=== PATIENT | female | born 1950 | race Caucasian/White ===

== ENCOUNTER 2016-08-14 14:46 | Outpatient (CLI) | payer MEDICARE, OTHER | END 2016-08-14 14:47 | disposition home or self-care (01) | DX: Z12.31 Encounter for screening mammogram for malignant neoplasm of breast (principal) ==

== ENCOUNTER 2017-02-03 07:28 | Day surgery (SDC) | payer MEDICARE, OTHER ==
[2017-02-03] MEDS ORDERED: LACTATED RINGERS 1,000 ML IV ONE ×2 (07:33→10:50)
[2017-02-03] MEDS ORDERED: ceFAZolin 3 GM/20 ML SYRINGE IVP ONE (08:00)
[2017-02-03] MEDS ORDERED: BUPIVACAINE 0.5% PF 30 ML VIAL INFIL ONE (10:08)
[2017-02-03] MEDS ORDERED: MIDAZOLAM 2 MG/2 ML VIAL IVP ONE (10:40)
[2017-02-03] MEDS ORDERED: fentaNYL 100 MCG/2 ML VIAL IVP ONE (10:40)
[2017-02-03] MEDS ORDERED: DEXAMETHASONE 4 MG/ML VIAL IVP ONE (10:40)
[2017-02-03] MEDS ORDERED: ROCURONIUM 50 MG/5 ML VIAL IVP ONE (10:40)
[2017-02-03] MEDS ORDERED: SUCCINYLCHOLINE 200 MG/10 ML VIAL IVP ONE (10:40)
[2017-02-03] MEDS ORDERED: PROPOFOL 200 MG/20 ML VIAL IVP ONE (10:40)
[2017-02-03] MEDS ORDERED: LIDOCAINE-MPF 2% 5 ML VIAL IM ONE (10:40)
[2017-02-03] MEDS ORDERED: ONDANSETRON 4 MG/2 ML VIAL IVP ONE (10:40)
--- NOTE | 2017-02-03 10:57 | OPERATIVE REPORT ---
Operative Report - General Procedure Date: 02/03/17 Planned Procedure: Incisional herniorrhaphy with mesh Pre-Op Diagnosis: Incisional hernia Procedure Performed: Incisional herniorrhaphy with mesh (Ventrallex ST hernia patch, reference # [id number], lot #[id number], use by 2017-11-05) Post Op Diagnosis: Same. - Procedure Note Primary Surgeon: Rober Pederson MD Anesthesia Provider: Roger Romero Anesthesia Technique: General ET tube, Local (30 mL of half percent Marcaine) IV Fluids (mL): 1,100 Estimated Blood Loss (mL): 5 Complications: None. - Other Other Information/Narrative: OPERATIVE DESCRIPTION/REPORT: After verbal and written informed consent was obtained detailing the risks of infection, bleeding requiring transfusion with its risks, nerve injury, and , and after I met with the patient confirming the surgery and the site of the surgery, the patient was brought to the operative suite and placed supine on the operating table. Great care was taken to avoid pressure points to prevent pressure necrosis or nerve injury. Monitoring devices were applied along with TEDs and pneumatic compressive stockings (to prevent DVT). The patient received preoperative antibiotics for surgical prophylaxis. Roger Romero sedated and anethetized the patient for the entire procedure. The patient was prepped and draped in the usual sterile manner. With the patient draped my initials were clearly visible. A "time in" then confirmed that the paitient was identified with 3 identifiers (name, birthdate and medical record number), the history and physical was in the chart, the signed consent confirming the procedure was in the chart, the patient was in the correct position, the aforementioned prophylactic measures were in place or given, we had the correct personel and equipment to complete the procedure and that anesthesia, surgery and nursing were given an opportunuty to express any concerns. With the agreement of everyone in the room, we proceeded with the operation. A vertical midline incision was made overlying the mass and dissection was carried down to the hernia sac using a combination of Metzenbaum scissors, scalpel, and Bovie electrocautery. The sac was cleared of overlying adherent tissue, and the fascial defect was delineated. The fascia was cleared of any adherent tissue for a distance 1.5 cm from the defect. The sac was resected using a combination of Metzenbaum scissors and Bovie electrocautery. The defect was closed using a piece of Bard Ventralex ST mesh (see above) sewing it in place using interrupted 2-0 PDS using the supplied straps. The fascial defect was also closed using a 2-0 PDS in a figure-8 suture. The fascia and the skin were then injected using 1/2% marcaine for post operative pain control. The subcutaneous tissues were copiously irrigated, and then closed using an interrupted 2-0 Vicryl. Meticulous hemostasis was obtained using Bovie electrocautery. The skin incision was approximated with a running 4-0 Monocryl. At this point a time out was performed that confirmed that all the counts were correct, the procedure that was performed, the blood loss, the IV fluids administered, and the patient s condition. Having tolerated the procedure well, the patient was subsequently extubated and taken to recovery room in good and stable condition.
[2017-02-03 12:07] VITALS: BP 109/97
== END 2017-02-03 07:29 | disposition home or self-care (01) ==
LOC: SDS 07:28
PROVIDERS: ATTEND Surgery
PROC: 0WUF0JZ Supplement Abdominal Wall with Synthetic Substitute, Open Approach (ICD-10-PCS; principal; 2017-02-03 09:00)
DX: K43.2 Incisional hernia without obstruction or gangrene (principal); I10 Essential (primary) hypertension; E78.5 Hyperlipidemia, unspecified; E66.01 Morbid (severe) obesity due to excess calories; Z68.37 Body mass index [BMI] 37.0-37.9, adult; F32.9 Major depressive disorder, single episode, unspecified
CPT/HCPCS: 49560; 49568; C1781; J7120

== ENCOUNTER 2017-04-18 04:15 | Outpatient (CLI) | payer MEDICARE, OTHER | END 2017-04-18 04:16 | disposition critical access hospital (66) | LOC: EMS 04:15 | PROVIDERS: ATTEND Surgery | DX: R11.2 Nausea with vomiting, unspecified (principal) | CPT/HCPCS: A0425; A0427; 96361; 96365; 96375; 96376; 99284 ==

== ENCOUNTER 2017-04-18 04:53 | Emergency (ER) | payer MEDICARE, OTHER ==
[2017-04-18] MEDS ORDERED: SODIUM CHLORIDE 0.9% 1,000 ML IV ONE (04:57)
[2017-04-18] MEDS ORDERED: ONDANSETRON 4 MG/2 ML VIAL IVP STA ×2 (04:57→06:41)
[2017-04-18] MEDS ORDERED: ONDANSETRON 4 MG/2 ML VIAL ONE ×2 (05:26→06:48)
[2017-04-18 05:33] LABS: BASOPHILS # (AUTO) 0.1 10^3/uL (0.0-0.1); BASOPHILS % (AUTO) 0.6 %; HGB - HEMOGLOBIN 12.3 g/dL (12.0-16.0); LYMPHOCYTES # (AUTO) 0.9 10^3/uL (1.5-3.5); LYMPHOCYTES % (AUTO) 9.5 %; MEAN CORPUSCULAR HEMOGLOBIN 30.1 pg (27.0-31.0); MEAN CORPUSCULAR HGB CONC 34.3 g/dL (32.0-36.0); MEAN CORPUSCULAR VOLUME 87.9 fL (81.0-99.0); MEAN PLATELET VOLUME 9.6 fL (7.9-10.8); MONOCYTES # (AUTO) 0.3 10^3/uL (0.0-1.0); MONOCYTES % (AUTO) 3.8 %; NEUTROPHILS # (AUTO) 7.9 10^3/uL (1.5-6.6); NEUTROPHILS % (AUTO) 86.1 %; RED BLOOD COUNT 4.09 10^6/uL (4.20-5.40); RED CELL DISTRIBUTION WIDTH 13.2 % (12.0-15.0); UNCORRECTED WHITE BLOOD COUNT 9.1 x10^3/uL; WHITE BLOOD COUNT 9.1 x10^3/uL (4.8-10.8)
--- NOTE | 2017-04-18 05:49 | ED Physician Documentation ---
PD HPI NVD - Stated complaint Stated Complaint: N/V - Chief complaint Chief Complaint: Abd Pain - History obtained from History obtained from: Patient - History of Present Illness Timing - onset: Yesterday Timing - details: Gradual onset, Still present Associated symptoms: Abdominal pain Contributing factors: Sick contact Similar symptoms before: No diagnosis Recently seen: Not recently seen - Additonal information Additional information: Patient is a 66 year old female who is presenting to the emergency department for abdominal pain and vomiting. Patient states that is started yesterday and she has not been able to keep anything down. patient states that someone at her work last week had similar symptoms. Review of Systems Constitutional: reports: Chills, Myalgias. denies: Fever Eyes: reports: Reviewed and negative Ears: denies: Ear pain, Drainage/discharge Nose: denies: Congestion Throat: denies: Sore throat Cardiac: denies: Chest pain / pressure Respiratory: denies: Dyspnea, Cough, Wheezing GI: reports: Abdominal Pain, Nausea, Vomiting. denies: Diarrhea : denies: Dysuria, Frequency, Hesitancy Skin: denies: Rash, Lesions Musculoskeletal: denies: Neck pain Neurologic: reports: Generalized weakness. denies: Focal weakness, Numbness Immunocompromised: denies: Immunocompromised PD PAST MEDICAL HISTORY - Past Medical History Cardiovascular: Hypertension, High cholesterol GI: GERD : Incontinence Psych: Anxiety - Past Surgical History Past Surgical History: Yes Ortho: Hip replacement - Present Medications Home Medications: Ambulatory Orders Medication Instructions Recorded Confirmed Hydrochlorothiazide 25 mg PO DAILY 02/27/16 04/18/17 Levothyroxine [Synthroid] 150 mcg PO QDAC 02/27/16 04/18/17 Lisinopril 20 mg PO DAILY 02/27/16 04/18/17 Atorvastatin Calcium 20 mg PO DAILY 02/03/17 04/18/17 Venlafaxine HCl [Venlafaxine HCl 150 mg PO DAILY 02/03/17 04/18/17 ER] Ondansetron Odt [Zofran] 4 mg TL Q6H PRN #20 tablet 04/18/17 - Allergies Allergies/Adverse Reactions: Allergies Allergy/AdvReac Type Severity Reaction Status Date / Time No Known Drug Allergies Allergy Verified 04/18/17 05:04 - Social History Does the pt smoke?: No Smoking Status: Never smoker Does the pt drink ETOH?: No Does the pt have substance abuse?: No - Immunizations Immunizations are current?: Yes - POLST Patient has POLST: No PD ED PE NORMAL - Vitals Vital signs reviewed: Yes - General General: Alert and oriented X 3, Well developed/nourished - HEENT HEENT: Atraumatic, PERRL, Pharynx benign - Neck Neck: Supple, no meningeal sign - Cardiac Cardiac: RRR, No murmur - Respiratory Respiratory: No respiratory distress, Clear bilaterally - Abdomen Abdomen: Soft - Derm Derm: Normal color, Warm and dry, No rash - Extremities Extremities: No deformity - Neuro Neuro: Alert and oriented X 3, No motor deficit, No sensory deficit Eye Opening: Spontaneous Motor: Obeys Commands Verbal: Oriented GCS Score: 15 - Psych Psych: Normal mood PD ED PE EXPANDED - General General: Alert, Other (nauseated, uncomfortable) - HEENT HEENT: Dry mucous membranes - Abdomen Abdomen: Hyperactive BS, Tender to palpation, Generalized/diffuse Results - Vitals Vitals: Vital Signs - 24 hr 04/18/17 04:56 Temperature 37.4 C Heart Rate 91 Respiratory 18 Rate Blood Pressure 140/76 H O2 Saturation 99 Oxygen O2 Source Room air - Labs Labs: Laboratory Tests 04/18/17 04/18/17 04/18/17 05:25 05:25 05:29 WBC 9.1 RBC 4.09 L Hgb 12.3 Hct 36.0 L MCV 87.9 MCH 30.1 MCHC 34.3 RDW 13.2 Plt Count 227 MPV 9.6 Neut # 7.9 H Lymph # 0.9 L Gage # 0.3 Eos # 0.0 Baso # 0.1 Absolute Nucleated RBC 0.00 Nucleated RBC % 0.0 Sodium 139 Potassium 2.8 L Chloride 103 Carbon Dioxide 20 L Anion Gap 16.0 H BUN 18 Creatinine 1.0 Estimated GFR (MDRD) 55 L Glucose 181 H Calcium 9.6 Phosphorus 1.0 L* Magnesium 1.8 Total Bilirubin 0.8 AST 32 ALT 14 Alkaline Phosphatase 50 Total Protein 7.2 Albumin 4.3 Globulin 2.9 Albumin/Globulin Ratio 1.5 Lipase 13 L Influenza A (Rapid) Negative Influenza B (Rapid) Negative Influenza Types A,B Ag - PD MEDICAL DECISION MAKING - ED course Complexity details: reviewed old records, reviewed results, re-evaluated patient , considered differential, d/w patient ED course: Patient was seen and examined at bedside. IV access was gained and labs were drawn. Patient was treated with IV fluids and zofran. When patient's labs came back she had multiple electrolyte abnormalities. Electrolytes were replaced. Patient was able to tolerate PO without difficulty. patient required no further work up and was stable for discharge with outpatient follow up. Departure - Departure Disposition: 01 Home, Self Care Clinical Impression: Gastroenteritis Condition: Good Instructions: ED Gastroenteritis Viral Follow-Up: Peg Hurst PA [Primary Care Provider] - Prescriptions: Ondansetron Odt [Zofran] 4 mg TL Q6H PRN #20 tablet PRN Reason: Nausea / Vomiting Comments: Your symptoms today are being caused by gastroenteritis. It is most likely viral in nature and should be self limited, meaning it will get better on its own. Your electrolytes are abnormal due to your vomiting and will need to be replaced. The easiest way to do it is with gatorade, pedialyte or other electrolyte solution. You should take the zofran for nausea and stay well hydrated. You should follow up with your doctor thursday if your symptoms are persistent. you may return to the emergency department at any time for new, worsening or uncontrollable symptoms.
[2017-04-18 06:08] LABS: ALBUMIN/GLOBULIN RATIO 1.5 (1.0-2.2); BILIRUBIN,TOTAL 0.8 mg/dL (0.2-1.0); CALCIUM 9.6 mg/dL (8.5-10.3); MAGNESIUM 1.8 mg/dL (1.7-2.8); POTASSIUM 2.8 mmol/L (3.5-5.0); TOTAL PROTEIN 7.2 g/dL (6.7-8.2)
[2017-04-18] MEDS ORDERED: NEUTRA-PHOS 250 MG TABLET PO STA (06:11)
[2017-04-18] MEDS ORDERED: POTASSIUM CHLORIDE 20 MEQ TABLET PO STA (06:11)
[2017-04-18] MEDS ORDERED: POTASSIUM CHLORIDE 20 MEQ TABLET PO ONE (06:21)
[2017-04-18] MEDS ORDERED: DICYCLOMINE 10 MG CAPSULE PO STA (06:41)
[2017-04-18] MEDS ORDERED: DICYCLOMINE 10 MG CAPSULE PO ONE (06:48)
[2017-04-18] MEDS ORDERED: PROMETHAZINE INJ 25 MG in SODIUM CHLORIDE 0.9% 50 ML IV STA (07:31)
[2017-04-18] MEDS ORDERED: PROMETHAZINE 25 MG/1 ML VIAL ONE (07:39)
[2017-04-18 09:10] VITALS: BP 132/74
== END 2017-04-18 09:10 | disposition home or self-care (01) ==
LOC: EDUNIT# → ED 04:53 → SUPCPDRO 04:53 → ED 09:10
DX: K52.9 Noninfective gastroenteritis and colitis, unspecified (principal); I10 Essential (primary) hypertension; E78.00 Pure hypercholesterolemia, unspecified; K21.9 Gastro-esophageal reflux disease without esophagitis
CPT/HCPCS: 36415; 80053; 83690; 83735; 84100; 85025; 87275; 87276; 96361; 96365; 96375; 96376; 99283; 99284; A9270; J7040

== ENCOUNTER 2018-01-23 12:45 | Outpatient (CLI) | payer MEDICARE, OTHER | END 2018-01-23 12:46 | disposition critical access hospital (66) | LOC: EMS 12:45 | PROVIDERS: ATTEND Surgery | DX: R11.10 Vomiting, unspecified (principal); R10.9 Unspecified abdominal pain | CPT/HCPCS: A0425; A0427 ==

== ENCOUNTER 2018-01-23 13:22 | Emergency (ER) | payer MEDICARE, OTHER ==
[2018-01-23] MEDS ORDERED: SODIUM CHLORIDE 0.9% 1,000 ML IV ONE ×2 (13:43)
[2018-01-23] MEDS ORDERED: ONDANSETRON 4 MG/2 ML VIAL IVP STA (13:50)
[2018-01-23] MEDS ORDERED: MORPHINE 2 MG/ML CARPUJECT IVP STA (13:50)
--- NOTE | 2018-01-23 13:54 | ED Physician Documentation ---
PD HPI ABD PAIN - Stated complaint Stated Complaint: N/V - Chief complaint Chief Complaint: Abd Pain - History obtained from History obtained from: Patient, Family - History of Present Illness Timing - onset: How many days ago (3) Timing - duration: Days (3) Timing - details: Gradual onset, Intermittant Pain level max: 4 Pain level now: 3 Quality: Cramping, Pain Location: All over / everywhere Radiation: No: Chest, , Lower back, Left flank, Left shoulder, Right flank, Right shoulder, Upper back Improved by: Vomiting, BM (diarrhea for the past 3 days) Worsened by: Eating Associated symptoms: Nausea, Vomiting, Diarrhea. No: Fever, Hematemesis, Constipation, Melena, Hematochezia, Dysuria, Hematuria Similar symptoms before: Other (states has had this a few times in the past. states increased stress lately.) Recently seen: Not recently seen Review of Systems Constitutional: denies: Fever, Chills Nose: denies: Rhinorrhea / runny nose, Congestion Throat: denies: Sore throat Cardiac: denies: Chest pain / pressure Respiratory: denies: Cough GI: denies: Hematemesis, Bloody / black stool Skin: denies: Rash Musculoskeletal: denies: Neck pain, Back pain Neurologic: denies: Headache PD PAST MEDICAL HISTORY - Past Medical History Past Medical History: Yes Cardiovascular: Hypertension, High cholesterol Respiratory: None Endocrine/Autoimmune: None GI: GERD MECHANICAL FITTER: None : Incontinence HEENT: None Psych: Anxiety Musculoskeletal: None Derm: None - Past Surgical History Past Surgical History: Yes Ortho: Hip replacement - Present Medications Home Medications: Ambulatory Orders Medication Instructions Recorded Confirmed Hydrochlorothiazide 25 mg PO DAILY 02/27/16 04/18/17 Levothyroxine [Synthroid] 150 mcg PO QDAC 02/27/16 04/18/17 Lisinopril 20 mg PO DAILY 02/27/16 04/18/17 Atorvastatin Calcium 20 mg PO DAILY 02/03/17 04/18/17 Venlafaxine HCl [Venlafaxine HCl 150 mg PO DAILY 02/03/17 04/18/17 ER] Dicyclomine [Bentyl] 10 mg PO QID #20 capsule 04/18/17 Ondansetron Odt [Zofran] 4 mg TL Q6H PRN #20 tablet 04/18/17 Lorazepam [Ativan] 1 mg PO Q8HR PRN #7 tablet 01/23/18 Ondansetron Odt [Zofran] 4 mg TL Q6H PRN #10 tablet 01/23/18 - Allergies Allergies/Adverse Reactions: Allergies Allergy/AdvReac Type Severity Reaction Status Date / Time No Known Drug Allergies Allergy Verified 01/23/18 13:34 - Social History Does the pt smoke?: No Smoking Status: Never smoker Does the pt drink ETOH?: No Does the pt have substance abuse?: No - Immunizations Immunizations are current?: Yes - POLST Patient has POLST: No PD ED PE NORMAL - Vitals Vital signs reviewed: Yes - General General: Alert and oriented X 3, No acute distress - HEENT HEENT: Moist mucous membranes - Neck Neck: Supple, no meningeal sign - Cardiac Cardiac: RRR, Strong equal pulses - Respiratory Respiratory: No respiratory distress, Clear bilaterally - Abdomen Abdomen: Soft, Non tender, Non distended - Derm Derm: Warm and dry - Neuro Neuro: Alert and oriented X 3 - Psych Psych: Normal mood, Normal affect Results - Vitals Vitals: Vital Signs - 24 hr 01/23/18 01/23/18 01/23/18 13:30 14:04 14:32 Temperature 36.6 C Heart Rate 75 90 73 Respiratory 18 22 14 Rate Blood Pressure 118/70 128/72 133/75 H O2 Saturation 98 100 95 01/23/18 15:49 Temperature Heart Rate 70 Respiratory 12 Rate Blood Pressure 131/64 H O2 Saturation 100 Oxygen O2 Source Room air - Labs Labs: Laboratory Tests 01/23/18 01/23/18 14:07 14:07 WBC 10.3 RBC 4.19 L Hgb 12.7 Hct 36.7 L MCV 87.5 MCH 30.4 MCHC 34.7 RDW 13.5 Plt Count 252 MPV 8.3 Neut # (Auto) 9.1 H Lymph # (Auto) 0.8 L Graham # (Auto) 0.4 Eos # (Auto) 0.0 Baso # (Auto) 0.1 Absolute Nucleated RBC 0.01 Nucleated RBC % 0.1 Sodium 141 Potassium 3.2 L Chloride 107 Carbon Dioxide 19 L Anion Gap 15.0 H BUN 13 Creatinine 0.7 Estimated GFR (MDRD) 83 L Glucose 189 H Calcium 8.9 Total Bilirubin 0.7 AST 17 ALT 11 Alkaline Phosphatase 49 Total Protein 7.4 Albumin 3.9 Globulin 3.5 Albumin/Globulin Ratio 1.1 Lipase 27 PD MEDICAL DECISION MAKING - ED course Complexity details: reviewed results, re-evaluated patient, considered differential, d/w patient ED course: Patient is a 67-year-old female who presents to the emergency department vomiting today. Appears to be likely related to stress and anxiety given her 's recent cancer diagnosis. She feels better after Ativan. Tolerating p.o. without difficulty. IV fluids given. Abdomen is soft, nontender nondistended on serial exam. She is comfortable going home at this time. Patie nt counseled regarding signs and symptoms for which I believe and urgent re- evaluation would be necessary. Patient with good understanding of and agreement to plan and is comfortable going home at this time This document was made in part using voice recognition software. While efforts are made to proofread this document, sound alike and grammatical errors may occur. - Sepsis Event Vital Signs: Vital Signs - 24 hr 01/23/18 01/23/18 01/23/18 13:30 14:04 14:32 Temperature 36.6 C Heart Rate 75 90 73 Respiratory 18 22 14 Rate Blood Pressure 118/70 128/72 133/75 H O2 Saturation 98 100 95 01/23/18 15:49 Temperature Heart Rate 70 Respiratory 12 Rate Blood Pressure 131/64 H O2 Saturation 100 Oxygen O2 Source Room air Departure - Departure Disposition: 01 Home, Self Care Clinical Impression: Anxiety Vomiting Qualifiers: Vomiting type: unspecified Vomiting Intractability: non-intractable Nausea presence: with nausea Qualified Code(s): R11.2 - Nausea with vomiting, unspecified Condition: Good Instructions: ED Nausea Vomiting Follow-Up: Peg Hurst PA [Primary Care Provider] - Within 1 week Prescriptions: Lorazepam [Ativan] 1 mg PO Q8HR PRN #7 tablet PRN Reason: As Needed Per Provider Orders Ondansetron Odt [Zofran] 4 mg TL Q6H PRN #10 tablet PRN Reason: Nausea / Vomiting Comments: Talk to your doctor about further medications for your anxiety. Return if you worsen. Do not drive or operate heavy machinery while taking ativan. Discharge Date/Time: 01/23/18 15:56
[2018-01-23] MEDS ORDERED: LORazepam 2 MG/ML VIAL IVP STA (14:09)
[2018-01-23 14:13] LABS: BASOPHILS # (AUTO) 0.1 10^3/uL (0.0-0.1); BASOPHILS % (AUTO) 0.7 %; EOSINOPHILS % (AUTO) 0.1 %; HGB - HEMOGLOBIN 12.7 g/dL (12.0-16.0); LYMPHOCYTES # (AUTO) 0.8 10^3/uL (1.5-3.5); LYMPHOCYTES % (AUTO) 7.3 %; MEAN CORPUSCULAR HEMOGLOBIN 30.4 pg (27.0-31.0); MEAN CORPUSCULAR HGB CONC 34.7 g/dL (32.0-36.0); MEAN CORPUSCULAR VOLUME 87.5 fL (81.0-99.0); MEAN PLATELET VOLUME 8.3 fL (7.9-10.8); MONOCYTES # (AUTO) 0.4 10^3/uL (0.0-1.0); MONOCYTES % (AUTO) 3.5 %; NEUTROPHILS # (AUTO) 9.1 10^3/uL (1.5-6.6); NEUTROPHILS % (AUTO) 88.4 %; PLT - PLATELET COUNT 252 10^3/uL (130-450); RED BLOOD COUNT 4.19 10^6/uL (4.20-5.40); RED CELL DISTRIBUTION WIDTH 13.5 % (12.0-15.0); WHITE BLOOD COUNT 10.3 x10^3/uL (4.8-10.8)
[2018-01-23 14:25] LABS: ALBUMIN 3.9 g/dL (3.2-5.5); ALBUMIN/GLOBULIN RATIO 1.1 (1.0-2.2); BILIRUBIN,TOTAL 0.7 mg/dL (0.2-1.0); CALCIUM 8.9 mg/dL (8.5-10.3); CREATININE 0.7 mg/dL (0.4-1.0); TOTAL PROTEIN 7.4 g/dL (6.7-8.2)
[2018-01-23 15:50] VITALS: BP 131/64
== END 2018-01-23 15:56 | disposition home or self-care (01) ==
LOC: EDUNIT# → ED 13:22
DX: F41.9 Anxiety disorder, unspecified (principal); R11.2 Nausea with vomiting, unspecified; I10 Essential (primary) hypertension
CPT/HCPCS: 36415; 80053; 83690; 85025; 96361; 96374; 96375; 99283; J2060

== ENCOUNTER 2018-09-18 10:37 | Outpatient (CLI) | payer MEDICARE, OTHER ==
--- NOTE | 2018-09-20 01:33 | XRAY Report ---
Reason: CERVICALGIA Procedure Date: 09/18/2018 Accession Number: [id number] / [id number] Procedure: XR - Cervical Spine 2 View CPT Code: FULL RESULT: EXAM: CERVICAL SPINE RADIOGRAPHY EXAM DATE: 09/18/2018 10:51 AM. CLINICAL HISTORY: Cervicalgia. Ongoing neck pain. COMPARISONS: None. TECHNIQUE: 4 views. FINDINGS: Moderate to severe degenerative disk disease with disk height loss and osteophytes at C4 to C7. Moderate C3-C4 degenerative disk disease with osteophytes. Moderate to severe diffuse facet arthropathy in the upper and mid cervical spine with severe left C2-C3, C3-C4 and C4-C5 facet arthropathy noted. Mild to moderate C6-C7 and C7-T1 facet arthropathy. Minimal retrolisthesis at C4-C5 and C5-C6 most likely degenerative. Minimal C2-C3 anterolisthesis most likely degenerative. No evidence for acute fracture. No prevertebral soft tissue swelling. IMPRESSION: 1. No evidence for acute fracture. 2. Degenerative changes. See above. RADIA
--- NOTE | 2018-09-20 15:26 | CT Report ---
Reason: CERVICALGIA,CHRONIC SINUSITIS,UNSPECIFIED Procedure Date: 09/18/2018 Accession Number: [id number] / [id number] Procedure: CT - Sinuses CPT Code: FULL RESULT: EXAM: CT SINUS EXAM DATE: 09/18/2018 10:54 AM. HISTORY: Cervicalgia, chronic sinusitis, unspecified. COMPARISONS: None. TECHNIQUE: Routine multi-axial CT imaging performed through the sinuses. Iodinated IV contrast: None. Reconstructions: Multiplanar reformats. In accordance with CT protocol optimization, one or more of the following dose reduction techniques were utilized for this exam: automated exposure control, adjustment of mA and/or KV based on patient size, or use of iterative reconstructive technique. FINDINGS: RIGHT Frontal: Normal. Ethmoid: Normal. Maxillary: Normal. Sphenoid: Normal. Drainage Pathways: The frontal recess, ostiomeatal complex and sphenoethmoidal recess are patent and normal. LEFT Frontal: Normal. Ethmoid: Normal. Maxillary: Normal. Sphenoid: Normal. Drainage Pathways: The frontal recess, ostiomeatal complex and sphenoethmoidal recess are patent and normal. Nasal Cavity: Normal. No mass or significant anatomic abnormality evident. Osseous Structures: Unremarkable. Orbits: Unremarkable. Other: Absence of the left lateral incisor noted. IMPRESSION: Normal Sinus CT. No sinusitis. RADIA
== END 2018-09-18 10:38 | disposition home or self-care (01) ==
LOC: DI 10:37
PROVIDERS: ATTEND Physician Assistant
DX: J32.4 Chronic pansinusitis (principal); M50.31 Other cervical disc degeneration, high cervical region; M47.9 Spondylosis, unspecified; M43.12 Spondylolisthesis, cervical region
CPT/HCPCS: 70486; 72040

== ENCOUNTER 2018-10-15 16:10 | Outpatient (CLI) | payer MEDICARE, OTHER ==
--- NOTE | 2018-10-18 09:25 | Mammography Report ---
Reason: ENCOUNTER FOR SCREENING MAMMOGRAM FOR MALIGNANT NE Procedure Date: 10/15/2018 Accession Number: [id number] / [id number] Procedure: [facility]OLA - Screening Mammo w/Mauricio CPT Code: FULL RESULT: EXAM: Screening Mammo w/Mauricio DATE: 10/15/2018 4:48 PM CLINICAL HISTORY: Screening TECHNIQUE: (B) - Bilateral CC and MLO views were obtained. COMPARISON: 08/14/2016, 05/12/2014 PARENCHYMAL PATTERN: (A) - The breasts demonstrate scattered fibroglandular densities bilaterally. FINDINGS: There are no suspicious masses, calcifications, or areas of distortion. IMPRESSION: Negative examination. BI-RADS category 1. RECOMMENDATION: (ANNUAL) - Recommend routine annual screening mammography. BI-RADS CATEGORY: (1) - Negative. STANDARD QUALIFYING STATEMENTS: 1. This examination was not reviewed with the aid of Computer-Aided Detection (CAD). 2. A negative or benign imaging report should not preclude biopsy if clinically suspicious findings are present. 3. Dense breasts may obscure an underlying neoplasm. 4. This examination was reviewed with the aid of 3D breast imaging (tomosynthesis).
== END 2018-10-15 16:11 | disposition home or self-care (01) ==
LOC: DI 16:10
PROVIDERS: ATTEND Physician Assistant
DX: Z12.31 Encounter for screening mammogram for malignant neoplasm of breast (principal)
CPT/HCPCS: 77063; 77067

== ENCOUNTER 2018-11-22 14:13 | Outpatient (CLI) | payer MEDICARE, OTHER ==
--- NOTE | 2018-11-22 16:12 | XRAY Report ---
Reason: PAIN IN LEFT WRIST Procedure Date: 11/22/2018 Accession Number: [id number] / [id number] Procedure: XRS - Wrist 3 View LT CPT Code: FULL RESULT: EXAMS: LEFT HAND AND WRIST RADIOGRAPHY EXAM DATE: 11/22/2018 02:38 PM. CLINICAL HISTORY: Pain in left hand, M79.642. COMPARISON: WRIST 3 VIEW LT 11/22/2018 2:44 PM. TECHNIQUE: 3 views of the wrist and 3 views of the hand. FINDINGS: Bones: The fifth metacarpal appears intact. No fractures or bone lesions in the hand or wrist. Joints: There are at least moderate degenerative changes of the first carpometacarpal articulation. There is joint space narrowing of the interphalangeal joints, distal greater than proximal with osteophytosis. The scapholunate interval measures 3 mm as seen on the PA view of the wrist. Soft Tissues: Normal. No soft tissue swelling. 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 Osteoarthrosis pattern degenerative changes. RADIA The call report notification system was initiated by Dr. Gonsalo Blankenship at 04:11 PM on 11/22/2018.
--- NOTE | 2018-11-22 16:12 | XRAY Report ---
Reason: PAIN IN LEFT HAND, M79.642 Procedure Date: 11/22/2018 Accession Number: [id number] / [id number] Procedure: XRS - Hand 3 View LT CPT Code: FULL RESULT: EXAMS: LEFT HAND AND WRIST RADIOGRAPHY EXAM DATE: 11/22/2018 02:38 PM. CLINICAL HISTORY: Pain in left hand, M79.642. COMPARISON: WRIST 3 VIEW LT 11/22/2018 2:44 PM. TECHNIQUE: 3 views of the wrist and 3 views of the hand. FINDINGS: Bones: The fifth metacarpal appears intact. No fractures or bone lesions in the hand or wrist. Joints: There are at least moderate degenerative changes of the first carpometacarpal articulation. There is joint space narrowing of the interphalangeal joints, distal greater than proximal with osteophytosis. The scapholunate interval measures 3 mm as seen on the PA view of the wrist. Soft Tissues: Normal. No soft tissue swelling. 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 Osteoarthrosis pattern degenerative changes. RADIA The call report notification system was initiated by Dr. Gonsalo Blankenship at 04:11 PM on 11/22/2018. ADDENDUM: 11/22/18 16:30 The above call report findings were discussed with Di by Dr. Gonsalo Blankenship at 04:30 PM on 11/22/2018.
== END 2018-11-22 14:14 | disposition home or self-care (01) ==
LOC: DI.S 14:13
PROVIDERS: ATTEND Physician Assistant
DX: M19.042 Primary osteoarthritis, left hand (principal); M19.032 Primary osteoarthritis, left wrist; M18.12 Unilateral primary osteoarthritis of first carpometacarpal joint, left hand

== ENCOUNTER 2020-04-16 09:34 | Outpatient (CLI) | payer MEDICARE, OTHER ==
--- NOTE | 2020-04-16 17:14 | XRAY Report ---
PROCEDURE: Hand 3 View LT INDICATIONS: LEFT HAND PAIN TECHNIQUE: 3 views of the hand(s) acquired. COMPARISON: 11/22/2018. FINDINGS: Bones: No fractures or dislocations. No suspicious bony lesions. Moderate osteoarthritic degenerati ve changes noted in the first CMC joint. Moderate osteoarthritic degenerative changes noted in the fi rst through fifth DIP joints. Mild osteophytic degenerative changes noted in the second through fifth PIP joints. Soft tissues: No suspicious soft tissue calcifications. IMPRESSION: 1. Osteoarthritis as described above. 2. No fracture. No acute osseous lesion. If there persistent symptoms or continued clinical concern f or pathology, then repeat plain film radiographs (7-10 days) or advanced imaging (CT, MR, bone scan) should be considered for further evaluation. Reviewed by: Celi Levy MD, PhD on 04/16/2020 5:13 PM PST Approved by: Celi Levy MD, PhD on 04/16/2020 5:13 PM [facility] Station ID: [id number]
--- NOTE | 2020-04-16 17:16 | XRAY Report ---
PROCEDURE: Wrist 3 View LT INDICATIONS: LEFT WRIST PAIN TECHNIQUE: 3 views of the wrist were acquired. COMPARISON: 11/22/2018 FINDINGS: Bones: Comminuted fracture involving the dorsal margin of the distal radius. Fracture lucencies exten d into the radiocarpal joint. Soft tissues: No suspicious soft tissue calcifications. IMPRESSION: Displaced, comminuted, intra-articular distal left radius fracture. Reviewed by: Celi Levy MD, PhD on 04/16/2020 5:15 PM PST Approved by: Celi Levy MD, PhD on 04/16/2020 5:15 PM PST Station ID: [id number]
== END 2020-04-16 09:35 | disposition home or self-care (01) ==
LOC: DI.S 09:34
PROVIDERS: ATTEND Nurse Practitioner Family
DX: S52.572A Other intraarticular fracture of lower end of left radius, initial encounter for closed fracture (principal); M19.042 Primary osteoarthritis, left hand

== ENCOUNTER 2022-12-11 07:07 | Outpatient (CLI) | payer MEDICARE ==
[2022-12-11 15:09] LABS: BASOPHILS # (AUTO) 0.1 10^3/uL (0.0-0.1); BASOPHILS % (AUTO) 0.8 %; EOSINOPHILS # (AUTO) 0.2 10^3/uL (0.0-0.7); EOSINOPHILS % (AUTO) 3.9 %; HCT - HEMATOCRIT 42.3 % (37.0-47.0); HGB - HEMOGLOBIN 13.3 g/dL (12.0-16.0); LYMPHOCYTES # (AUTO) 1.6 10^3/uL (1.5-3.5); LYMPHOCYTES % (AUTO) 26.4 %; MEAN CORPUSCULAR HEMOGLOBIN 30.1 pg (27.0-31.0); MEAN CORPUSCULAR HGB CONC 31.4 g/dL (32.0-36.0); MEAN CORPUSCULAR VOLUME 95.7 fL (81.0-99.0); MEAN PLATELET VOLUME 11.4 fL (7.9-10.8); MONOCYTES # (AUTO) 0.5 10^3/uL (0.0-1.0); MONOCYTES % (AUTO) 8.7 %; NEUTROPHILS # (AUTO) 3.7 10^3/uL (1.5-6.6); PLT - PLATELET COUNT 200 10^3/uL (130-450); RED BLOOD COUNT 4.42 10^6/uL (4.20-5.40); RED CELL DISTRIBUTION WIDTH 12.3 % (12.0-15.0); WHITE BLOOD COUNT 6.2 x10^3/uL (4.8-10.8)
[2022-12-11 15:38] LABS: ALBUMIN 4.3 g/dL (3.2-5.5); ALBUMIN/GLOBULIN RATIO 1.5 (1.0-2.2); BILIRUBIN,TOTAL 0.7 mg/dL (0.2-1.0); CALCIUM 9.4 mg/dL (8.5-10.3); CREATININE 0.8 mg/dL (0.6-1.3); POTASSIUM 4.1 mmol/L (3.5-4.5); TOTAL PROTEIN 7.2 g/dL (6.4-8.9)
[2022-12-11 15:55] LABS: THYROID STIMULATING HORMONE 0.97 uIU/mL (0.34-5.60)
[2022-12-11 20:54] LABS: ESTIMATED AVERAGE GLUCOSE 114 mg/dL (70-100); HEMOGLOBIN A1c% 5.6 % (4.27-6.07)
== END 2022-12-11 07:08 | disposition home or self-care (01) ==
LOC: LAB.S 07:07
PROVIDERS: ATTEND Nurse Practitioner
DX: Z00.00 Encounter for general adult medical examination without abnormal findings (principal); E03.9 Hypothyroidism, unspecified
CPT/HCPCS: 36415; 80053; 83036; 84443; 85025